=== PATIENT | male | born 1970 | race Hispanic/Latino ===

== ENCOUNTER 2020-11-25 14:22 | Emergency (ER) | payer SELFPAY ==
[2020-11-25] MEDS ORDERED: HYDROcodone/Acetaminophen 10/325 mg Tablet ONE (14:58)
[2020-11-25] MEDS ORDERED: Ibuprofen 800 MG TAB ONE (14:58)
== END 2020-11-25 16:08 | disposition home or self-care (01) ==
LOC: BURERS 14:22
DX: S92.324A Nondisplaced fracture of second metatarsal bone, right foot, initial encounter for closed fracture (principal); W11.XXXA Fall on and from ladder, initial encounter
CPT/HCPCS: 28470